=== PATIENT | female | born 1970 | race Caucasian/White ===

== ENCOUNTER 2016-09-12 10:54 | Observation (INO) | payer OTHER ==
--- NOTE | 2016-09-12 00:21 | GHP ---
[f rep st] PREOP HISTORY AND PHYSICAL DATE OF ADMISSION: 09/12/2016 DATE OF SURGERY: The patient is slated for surgery on 09/12/2015 on the Gynecology service. HISTORY: Upon presentation, the patient is a 46-year-old, para 2, white female who has had worsening dysmenorrhea and pelvic pain over the last year with increasing to severe intensity in the last 6 mo nths. The patient has also had progressively more dysfunctional uterine bleeding. She has had a serafin g history of menometrorrhagia with menstrual cycles commonly between 5-7 days with extremely heavy fl ow. However, bleeding becoming more irregular and cycles closer together. The patient was on NuvaRi ng to control cycles in the past. However, as the bleeding became irregular, the NuvaRing was change d to Loestrin. Patient symptomatic enough with her menses that she was missing work due to the pain, nausea, and vomiting. The patient was having increased pelvic pressure with a constant achiness int o her legs and shooting pains bilaterally down her legs. Patient has been having increasing perimeno pausal symptoms with night sweats at night and hot flashes during the day. The patient's variation i n her cycle timing was also attributed to perimenopause. Patient desires definitive management now w ith a hysterectomy. She also is interested in removal of both ovaries as she has had recurrent ovari an cysts on both sides that have caused episodes of significant pain. As the patient feels she has l ittle time of good ovarian function, she wants to have her ovaries removed and begun on hormone repla cement. Risks and benefits of surgery have been discussed with the patient and consent form signed. PAST MEDICAL HISTORY: Mild asthma. Irritable bowel syndrome, which has been much worse recently wit h all the stress over her symptomatic cycles. Abnormal Pap smears with history of cryotherapy. PAST SURGICAL HISTORY: In 2000, patient had a laparoscopy to evaluate a mass causing pain that turne d out to be a bacterial blockage with the right ureter and the patient had a ureteral stent placed. The patient also was admitted to the hospital in 2013 for symptoms potentially consistent with a card iac event or heart attack. However, this was identified to be more due to low oxygen levels with sev ere pneumonia. Patient with laparoscopic knee surgery in 1988 and 1990. Additional knee surgery in 1991. Toe surgery in 1995. PAST OBSTETRIC HISTORY: In July 1997, a male, 7 pounds 2 ounces, delivered vaginally. In February 24, another male delivered at term at 6 pounds 11 oz vaginally without problem. ALLERGIES: The patient has no known drug allergies. CURRENT MEDICATION: Patient has been on Loestrin 1.5 to reduce any potential bleeding prior to [facility]. Patient has also periodically been on vitamins and iron. SOCIAL HISTORY: The patient is , lives with her and their 2 sons. 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 She is a nonsmoker, having quit in 2004. Patient has appr oximately 2 alcohol drinks a day. Patient denies any other drug use. PHYSICAL EXAM: GENERAL: Prior to surgery reveals a well-developed, well-nourished, white female in no physical distress. VITAL SIGNS: Patient is clinically afebrile. Blood pressure 125/90, weight 1 38 pounds. HEENT: Shows no thyromegaly. No adenopathy. Oropharynx is clear. LUNGS: Clear to aus cultation bilaterally. CARDIOVASCULAR: Regular rate and rhythm. ABDOMEN: Soft and nontender. PEL ROGERIO: Deferred. EXTREMITIES: Nontender with no edema. Pelvic exam in July 2016 revealed the uterus 6 x 4 x 3 cm with an endometrial thickness of 0.29 c m. There was 1 fibroid noted that was only 1.8 cm in the right fundal portion. Possible evidence of a polyp in the upper endocervical canal. However, possibly also is consistent with a blood clot. O varies bilaterally normal with a left ovary 1.8 cm complex cyst. LABS: Last labs reveal a normal TSH of 3.4 cm in June 2016 as well as hematocrit of 46.7%. ASSESSMENT: Menorrhagia and dysmenorrhea, dysfunctional uterine bleeding, pelvic pain. PLAN: We will proceed with total laparoscopic hysterectomy and bilateral salpingo-oophorectomy on [facility] 2016. Patient will be given preoperative antibiotics and have on SCDs on the lower extremi ties during surgery. Laparoscopic approaches versus open versus vaginal discussed with the patient a nd the pros and cons of each. As the patient has irregular pain throughout her abdomen, her interest is to proceed with a laparoscopic hysterectomy so we can get abdominal visualization. Consent form signed. /[id number]/MODL
[~2016-09-12 10:54] MED LIST: ceFAZolin 2 GM/DEXTROSE 100 ML IV ONE
[2016-09-12] MEDS ORDERED: CEFAZOLIN 2 GM/DEXTROSE/100 ML BAG IV ONE (11:26)
[2016-09-12 11:28] LABS: % IMMATURE GRANULYOCYTES 0.2 % (0.0-1.1); ABSOLUTE IMMATURE GRANULOCYTES 0.02 10^3/uL (0.00-0.10); ADD DIFF? NO; ADD MORPH? NO; ADD SCAN? NO; ATYPICAL LYMPHOCYTE FLAG 20 (0-99); FRAGMENT RBC FLAG 0 (0-99); HEMATOCRIT 45.2 % (38.0-47.0); HEMOGLOBIN 15.6 g/dL (12.6-16.3); LEFT SHIFT FLG 0 (0-99); LIPEMIA HEMOLYSIS FLAG 90 (0-99); MEAN CELL HEMOGLOBIN 31.7 pg (27.9-34.1); MEAN CELL HEMOGLOBIN CONCENTR. 34.5 g/dL (32.4-36.7); MEAN CELL VOLUME 91.9 fL (81.5-99.8); MEAN PLATELET VOLUME 9.6 fL (8.7-11.7); PLATELET CLUMPS FLAG 20 (0-99); PLATELET COUNT 250 10^3/uL (150-400); RED BLOOD CELL COUNT 4.92 10^6/uL (4.18-5.33); RED CELL DISTRIBUTION WIDTH 12.6 % (11.5-15.2)
[2016-09-12 11:48] LABS: ANION GAP 16 mEq/L (8-16); CALCIUM 9.1 mg/dL (8.5-10.4); CARBON DIOXIDE 20 mEq/l (22-31); CHLORIDE 105 mEq/L (97-110); CREATININE 0.7 mg/dL (0.6-1.0); GLOMERULAR FILTRATION RATE > 60; GLUCOSE 104 mg/dL (70-100); POTASSIUM 5.5 mEq/L (3.5-5.2); SODIUM 141 mEq/L (134-144); SPECIMEN HEMOLYSIS 168
[2016-09-12] MEDS ORDERED: SILVER NITRATE APPLICATOR 1 APPL TP ONE (11:50)
[2016-09-12] MEDS ORDERED: BUPIVACAINE 0.5% 30 ML SDV ONE (11:50)
[2016-09-12] MEDS ORDERED: PROPOFOL/EMULSION 500 MG/50 ML BOTTLE IV ONE (12:03)
[2016-09-12] MEDS ORDERED: fentaNYL 250 MCG/5 ML INJ ONE (12:03)
[2016-09-12] MEDS ORDERED: LIDOCAINE 2% 5 ML SDV ONE (12:07)
[2016-09-12] MEDS ORDERED: DEXAMETHASONE 4 MG/ML VIAL ONE ×3 (12:10)
[2016-09-12] MEDS ORDERED: ROCURONIUM 100 MG/10 ML VIAL ONE (12:10)
[2016-09-12] MEDS ORDERED: ONDANSETRON 4 MG/2 ML VIAL ONE (12:10)
[2016-09-12 12:39] LABS: POTASSIUM 4.2 mEq/L (3.5-5.2)
[2016-09-12] MEDS ORDERED: MIDAZOLAM 2 MG/2 ML VIAL ONE (12:41)
[2016-09-12] MEDS ORDERED: SUGAMMADEX SODIUM 200 MG/2 ML VIAL IVP ONE (14:45)
[2016-09-12] MEDS ORDERED: KETOROLAC 30 MG/1 ML SDV ONE (15:04)
[2016-09-12] MEDS ORDERED: ONDANSETRON DISINTEGRATING 4 MG TAB PO PRN (15:20)
[2016-09-12] MEDS ORDERED: ZOLPIDEM TARTRATE 5 MG TAB PO PRN (15:20)
[2016-09-12] MEDS ORDERED: LABETALOL HCL 5 MG/ML 20 ML MDV ONE (15:25)
[2016-09-12] MEDS ORDERED: LR 1,000 ML IV SCH (15:30)
--- NOTE | 2016-09-12 15:31 | POSTOPPROG ---
Post Op Note Date of Operation: 09/12/16 Surgeon: France Meza [employer] Coordinator: Keli Kenney MD Anesthesiologist: Jake Mccormick Anesthesia: GET(General Endotracheal) Pre-op Diagnosis: Pelvic pain, menorrhagia, DUB Post-op Diagnosis: same Indication: years of pelvic pain and dysmen, nl ut/ov on u/s, ivette-MP, DUB on pills Procedure: TLH, BSO Findings: nl small uterus with fundal fibroid 2 cm. nl ov/tubes/appi/no scarring. Inf/Abcess present in the surg proc area at time of surgery?: No Depth: Organ Space EBL: 50-100 Complications: none, bilat ureters visualized bilat. no scarring or evidence of etiology for mid abd pains. varicosities of pelvic vessels. clear UOP. 2 sutures with cuff closure due to one breaking Specimen(s): uterus, tubes, ovaries
[2016-09-12] MEDS ORDERED: fentaNYL 100 MCG/2 ML INJ ONE (15:37)
--- NOTE | 2016-09-12 19:17 | SOAPPROG ---
SOAP Progress Note Assessment/Plan: Assessment: POD 1/2 s/p TLH, BSO Plan: routine care 09/12/16 19:15 Subjective: Pt doing ok. Mod pain and has rec'd morphine. Taking oral and no nausea - next will try Tonica. Clear UOP in jeter. Not OOB yet. Objective: Vital Signs Temp Pulse Resp BP Pulse Ox 37.0 C 96 18 126/87 H 95 09/12/16 18:00 09/12/16 18:00 09/12/16 18:00 09/12/16 18:00 09/12/16 18:00 Laboratory Results 09/12/16 11:20 09/12/16 12:03 09/11/16 09/12/16 09/13/16 05:59 05:59 05:59 Intake Total 2100 Output Total 900 Balance 1200 Physical Exam - Physical Exam General Appearance: WD/WN Abdomen: non-tender (approp post op tenderness), soft, other (bandaides x3 CDI) Pelvic Exam: vaginal bleeding (none) Extremities: non-tender, pedal edema (scant) Neuro/Psych: normal mood/affect ICD10 Worksheet Patient Problems: Problems Problem Status Diagnosed S/P bilateral salpingo-oophorectomy Acute S/P laparoscopic hysterectomy Acute
[2016-09-12] MEDS: KETOROLAC 30 MG/1 ML SDV IVP SCH (21:16)
[2016-09-12] MEDS: HYDROCODONE/APAP 5/325 TAB PO PRN (21:17)
[2016-09-13] MEDS: HYDROCODONE/APAP 5/325 TAB PO PRN ×3 (01:10→11:22)
[2016-09-13] MEDS: KETOROLAC 30 MG/1 ML SDV IVP SCH ×2 (03:02→09:00)
[2016-09-13 05:31] LABS: HEMATOCRIT 38.3 % (38.0-47.0); HEMOGLOBIN 12.8 g/dL (12.6-16.3)
[2016-09-13 05:48] LABS: ANION GAP 12 mEq/L (8-16); CALCIUM 8.5 mg/dL (8.5-10.4); CARBON DIOXIDE 22 mEq/l (22-31); CHLORIDE 106 mEq/L (97-110); CREATININE 0.6 mg/dL (0.6-1.0); GLOMERULAR FILTRATION RATE > 60; GLUCOSE 116 mg/dL (70-100); POTASSIUM 4.5 mEq/L (3.5-5.2); SODIUM 140 mEq/L (134-144)
[2016-09-13 08:04] VITALS: BP 124/83; PULSE 73; RESP 16; TEMP 97.5
[2016-09-13] MEDS ORDERED: ENOXAPARIN 40 MG/0.4 ML SYR SC SCH (09:00)
[2016-09-13] MEDS ORDERED: BISACODYL 10 MG SUPP PR PRN (09:08)
[2016-09-13] MEDS ORDERED: LACTULOSE 20 GM/30 ML UDCUP PO PRN (09:08)
[2016-09-13] MEDS ORDERED: POLYETHYLENE GLYCOL 3350 17 GM PKT PO PRN (09:08)
[2016-09-13] MEDS ORDERED: MAGNESIUM HYDROXIDE 30 ML UDCUP PO PRN (09:08)
--- NOTE | 2016-09-13 09:17 | SOAPPROG ---
SOAP Progress Note Assessment/Plan: Assessment: POD 1 s/p TLH, BSO Plan: routine care, d/C home 09/12/16 19:15 09/13/16 09:14 Subjective: Pt doing ok. Reports pain through noc - very disruptive. No nausea. Susanna reg diet. Urinated once with good volume. Sore vagina. Not dysuria. Susanna Godwin and ibu to start at 3 pm. Was hot through noc. bothered by gas pains Objective: Vital Signs Temp Pulse Resp BP Pulse Ox 36.4 C 73 16 124/83 H 90 L 09/13/16 08:03 09/13/16 08:03 09/13/16 08:03 09/13/16 08:03 09/13/16 08:03 Laboratory Results 09/13/16 05:00 09/13/16 05:00 09/12/16 09/13/16 09/14/16 05:59 05:59 05:59 Intake Total 3100 Output Total 4400 Balance -1300 Physical Exam - Physical Exam General Appearance: WD/WN Abdomen: non-tender (approp post op tenderness), soft, other (bandaides CDI, No bruising) Pelvic Exam: vaginal bleeding (scant brownish) Skin: warm/dry Extremities: non-tender, pedal edema (none) Neuro/Psych: normal mood/affect ICD10 Worksheet Patient Problems: Problems Problem Status Diagnosed S/P bilateral salpingo-oophorectomy Acute S/P laparoscopic hysterectomy Acute
[2016-09-13] MEDS ORDERED: ESTRADIOL 1 MG TAB PO SCH (09:30)
[2016-09-13] MEDS ORDERED: SIMETHICONE 80 MG TAB CHEW PO SCH ×2 (09:40→13:00)
[2016-09-13 10:38] VITALS: O2SAT 96
[2016-09-13] MEDS ORDERED: SENNOSIDES/DOCUSATE SODIUM TAB PO SCH ×2 (11:15→21:00)
[2016-09-13] MEDS ORDERED: IBUPROFEN 600 MG TAB PO SCH (15:23)
--- NOTE | 2016-09-14 12:05 | GDS ---
[f rep st] DISCHARGE SUMMARY ADMISSION DIAGNOSIS: Status post total laparoscopic hysterectomy, bilateral salpingo-oophorectomies done for pelvic pain, menorrhagia, and dysfunctional bleeding. DISCHARGE DIAGNOSIS: Status post total laparoscopic hysterectomy, bilateral salpingo-oophorectomies done for pelvic pain, menorrhagia, and dysfunctional bleeding. PROCEDURE DURING HOSPITALIZATION: Total laparoscopic hysterectomy, bilateral salpingo-oophorectomies . SURGEON: France Meza MD. DISCHARGE CONDITION: Good. ADMISSION SUMMARY: The patient is a 46-year-old para 2 white female with worsening pelvic pain and d ysmenorrhea over the last year and intense in the last 6 months. The patient has tried to control he r cycles with NuvaRing and now more recently with hormone pills. However, has had miserable pelvic p ain and dysmenorrhea and menorrhagia. The patient has had perimenopausal symptoms with night sweats and has a history of ovarian cysts causing pain, and desires to have both her ovaries removed and be on hormone replacement after discharge. The patient has had a history of mildly abnormal Pap smears and wants to remove her cervix. Surgical consent form signed prior to admission. HOSPITAL COURSE: The patient underwent the above procedure on 09/12/2016 and was admitted for 23-teo r postoperative observation. The procedure was performed without complication. Estimated blood loss 100 cc. Postoperatively, the patient's pain was managed with IV Toradol, as well as Strang tablets. The patient initially received IV morphine until she was tolerating oral. The patient did not have any nausea during the hospital stay. The patient remained with stable vital signs and was afebrile. The patient's preoperative and postoperative hematocrits remained in the normal range. Preoperative ly, the patient was noted to have an elevated fasting blood sugar of 106 and the postoperative day 1 metabolic panel revealed an elevated blood sugar as well. However, the patient had had oral intake t hroughout the night. Hemoglobin A1c was ordered; however, this was pending at the time of discharge. The patient also had an elevated potassium at the time of fasting labs on admission before surgery. However, the tube was clotted and a repeat potassium was normal. A potassium level on postoperativ e day 1 was also in the normal range. The patient had a mild headache on the morning of postoperativ e day 1, as well as belly pains throughout the night associated with increased gas. The patient did have improvement with Mylicon prior to discharge. The patient's catheter was taken out the morning a fter surgery and the patient was able to urinate fine before discharge. On exam, her 3 small incisio n sites on her abdomen were not showing any signs of ecchymosis and there was no drainage from undern eath the Band-Aids. The patient's abdomen was soft and appropriately tender for postoperative day 1. The patient was having minimal scant brownish vaginal blood. She was able to ambulate without dizz iness. The patient was discharged home in the morning of postoperative day 1 with a prescription for Strang to use as needed, as well as estradiol to take orally every day. The patient was also advised to use ibuprofen regularly and stool softeners as needed for probable constipation due to the narcot ics. She was advised she could use Gas-X as needed for gas pains. The patient was discharged in goo d condition. /[id number]/MODL
== END 2016-09-13 11:35 | disposition home or self-care (01) ==
LOC: F3E 10:54 → FOB 17:02
PROVIDERS: ADMIT Obstetrics & Gynecology; ATTEND Obstetrics & Gynecology
PROC: 0UT2FZZ Resection of Bilateral Ovaries, Via Natural or Artificial Opening With Percutaneous Endoscopic Assistance (ICD-10-PCS; principal; 2016-09-12 12:15)
PROC: 0UT7FZZ Resection of Bilateral Fallopian Tubes, Via Natural or Artificial Opening With Percutaneous Endoscopic Assistance (ICD-10-PCS; principal; 2016-09-12 12:15)
PROC: 0UTC8ZZ Resection of Cervix, Via Natural or Artificial Opening Endoscopic (ICD-10-PCS; principal; 2016-09-12 12:15)
PROC: 0UT9FZZ Resection of Uterus, Via Natural or Artificial Opening With Percutaneous Endoscopic Assistance (ICD-10-PCS; principal; 2016-09-12 12:15)
DX: N92.0 Excessive and frequent menstruation with regular cycle (principal); R10.2 Pelvic and perineal pain; K58.9 Irritable bowel syndrome, unspecified
CPT/HCPCS: 58571; G0378; J0690; J1100; J1650; J1885; J2250; J2405; J2704; J3010; J3490

== ENCOUNTER 2016-09-24 23:12 | Observation (INO) | payer OTHER ==
[2016-09-24] MEDS ORDERED: SILVER NITRATE APPLICATOR 1 APPL TP ONE ×3 (23:30→23:44)
[2016-09-25 00:19] VITALS: BP 158/105; PULSE 74; RESP 18; TEMP 98.2; O2SAT 98
--- NOTE | 2016-09-25 00:35 | GHP ---
[f rep st] HISTORY AND PHYSICAL DATE OF ADMISSION: 09/24/2016 ADMITTING DIAGNOSES: 1. Postoperative vaginal bleeding. 2. Status post total laparoscopic hysterectomy, bilateral salpingo-oophorectomy , postop day #12. HISTORY OF PRESENT ILLNESS: This is a 46-year-old, para 2, white female who underwent a total laparoscopic hysterectomy, bilateral salpingo-oophorectomy on September 12 secondary to worsening dysmenorrhea and pelvic pain over the last year, increasingly severe intensity over the last 6 months. The patient also had progressively more dysfunctional uterine bleeding. The procedure went well without any complications. Postoperatively, the patient did well and was discharged home on postoperative day 1. She had minimal spotting and her pain was well controlled. No problems with urination or bowel movements. Today, she noticed increase in vaginal bleeding; bright red with small to medium sized clots. She denies any pain or cramping, or any acute abdominal pain. She is a little sore, but is no longer taking [place], just taking Advil. Patient presented to the emergency room at [facility] this evening and was transported to [facility] via ambulance for evaluation and treatment. Patient states that she did go through 3 pads in 1 hour while in the ED and had small to medium-size blood clots noted. Again denies any acute abdominal pain at this time. Patient states she has not overdone it, and has had pelvic rest, nothing in the vagina since surgery. PAST OBSTETRICAL HISTORY: In 1996, had a vaginal delivery to a male, 7 pounds 10 ounces, and in February 2000, delivered another male vaginally at term, 6 pounds 11 ounces. GYNECOLOGIC HISTORY: Menarche age 12. Cycles have become irregular and she had more dysfunctional uterine bleeding. Also had painful cycles. She does have a history of abnormal Pap smears with history of cryotherapy. Denies any exposures of sexually transmitted diseases. PAST MEDICAL HISTORY: Remarkable for mild asthma, irritable bowel syndrome. PAST SURGICAL HISTORY: 2000, she had a laparoscopy to evaluate a mass causing pain that turned out to be a bacterial blockage of the right ureter. Patient had a ureteral stent placed. Laparoscopic knee surgery done in 1988 and 1990. An additional knee surgery in 1991, and toe surgery in 1995. ALLERGIES: No known drug allergies. CURRENT MEDICATIONS: Advil, MiraLAX and a stool softener. SOCIAL HISTORY: Patient is and lives with her and their 2 teenage sons. She is a nonsmoker, quit in 2004. Denies any alcohol or illicit drug use. PHYSICAL EXAMINATION: VITAL SIGNS: On admission, vital signs are stable. Patient is afebrile. GENERAL: Well-nourished, well-developed, 46-year-old female, alert and oriented x3. No apparent distress. HEART: Regular rate/ rhythm. LUNGS: Clear to auscultation. ABDOMEN: Soft, nontender, nondistended. Laparoscopic incisions healing well. PELVIC EXAM: A weighted speculum was placed in the patient's vagina. There was noted to be a few small blood clots and active bleeding. EXTREMITIES: Normal to inspection, nontender , no edema. LABORATORY DATA: PTT 9.7, INR 0.9, PTT 22. H and H are stable at 14.4, 42.3. Platelets 309. ASSESSMENT: A 46-year-old, para 2, with postoperative vaginal bleeding status post total laparoscopic hysterectomy, bilateral salpingo-oophorectomy, postoperative day #12. PLAN: Patient was admitted for observation. When she got to the floor, patient had a pelvic exam that revealed active bleeding and blood clots in the vault. With a sponge stick, the area was cleaned and there was noted to be some granulation tissue that was raw appearing and bleeding. Silver nitrate x5 sticks were used. Hemostasis was achieved. No further active bleeding noted. No clots. Patient tolerated well. No complications. Instructed the patient to call the office in the morning and see Dr. Meza for followup. I felt the source of bleeding was visualized and was noted to be granulation tissue, therefore, did not obtain a CAT scan, and do not feel like there is a fluid collection, a hematoma. Pt is being discharged home in stable condition. /[id number]/MODL MTDD
== END 2016-09-25 00:10 | disposition home or self-care (01) ==
LOC: FLD 23:12
PROVIDERS: ADMIT Obstetrics & Gynecology; ATTEND Obstetrics & Gynecology
PROC: 3E0 Administration, Physiological Systems and Anatomical Regions, Introduction (ICD-10-PCS; principal; 2016-09-24)
DX: N99.820 Postprocedural hemorrhage of a genitourinary system organ or structure following a genitourinary system procedure (principal); L92.9 Granulomatous disorder of the skin and subcutaneous tissue, unspecified; N93.9 Abnormal uterine and vaginal bleeding, unspecified
CPT/HCPCS: 17250; G0378

== ENCOUNTER 2017-02-21 13:50 | Emergency (ER) | payer OTHER | END 2017-02-21 13:55 | disposition left against medical advice (07) | LOC: CED 13:50 | DX: Z53.21 Procedure and treatment not carried out due to patient leaving prior to being seen by health care provider (principal) ==

== ENCOUNTER → 2018-09-22 | Outpatient (CLI) | payer BC | LOC: CIMAGING 15:58 | PROVIDERS: ATTEND Family Medicine | DX: R05 Cough (principal) | CPT/HCPCS: 71046-PO ==